=== PATIENT | female | born 1985 | race Hispanic/Latino ===

== ENCOUNTER 2016-03-20 14:35 | Emergency (ER) | payer OTHER, MEDICARE ==
[~2016-03-20] VITALS: Ht 160 cm; Wt 61.7 kg
[~2016-03-20 14:35] MED LIST: ALBUTEROL 3 ML3 ML INH; DILAUDID2 MG PO; IBU800 MG PO; OXCARBAZEPINE600 MG PO; PREDNICOT10 MG PO; PROAIR HFA0.09 MG/Ac PO; TESSALON PERLE100 MG PO; ZOFRAN ODT4 MG PO
[2016-03-20] MEDS ORDERED: FOLIC ACID1 M1 PO (14:45)
[2016-03-20] MEDS ORDERED: OXCARBAZEPINE300 M1 PO ×2 (14:46)
[2016-03-20] MEDS ORDERED: OXCARBAZEPINE150 M1 PO (14:47)
[2016-03-20] MEDS ORDERED: LORAZEPAM1 M1 PO (14:48)
[2016-03-20] MEDS ORDERED: ALBUTEROL2.5 MG/3 M INH/SOL (14:49)
[2016-03-20] MEDS ORDERED: PROAIR HFA8.5 GM INH (14:49)
[2016-03-20] MEDS ORDERED: MULTI-DAY VITA1 EACH PO (14:49)
[2016-03-20 15:17] LABS: ABSOLUTE BASOPHIL COUNT 0.1 /CUMM (0.0-0.2); ABSOLUTE EOSINOPHIL COUNT 0.3 /CUMM (0.0-0.7); ABSOLUTE GRANULOCYTE CT 5.2 /CUMM (1.4-6.5); ABSOLUTE LYMPH COUNT 2.3 /CUMM (1.2-3.4); ABSOLUTE MONOCYTE COUNT 0.4 /CUMM (0.10-0.60); BASOPHIL % 0.7 % (0.0-2.0); GRANULOCYTE % 63.2 % (42.2-75.2); HEMATOCRIT 35.2 % (37-47); MEAN CORPUSCULAR HGB 29.6 PG (27.0-31.0); MEAN CORPUSCULAR HGB CONC 33.5 G/DL (33.0-37.0); MEAN CORPUSCULAR VOLUME 88.4 FL (81.0-99.0); MEAN PLATELET VOLUME 7.9 FL (7.4-10.4); PLATELET COUNT 325 /CUMM (130-400); RBC DISTRIBUTION WIDTH 11.9 % (11.5-14.5); RED BLOOD CELL CT 3.99 /CUMM (4.20-5.40); WHITE BLOOD CELL COUNT 8.2 /CUMM (4.8-10.8)
--- NOTE | 2016-03-20 16:02 | ED AMS/SEIZURE/WEAK/DIZZY ---
History of Present Illness General Chief Complaint: Neuro Symptoms/ Deficit Stated Complaint: BIBA ?STROKE ALERT Source: patient, family, old records, EMS Exam Limitations: no limitations Vital Signs & Intake/Output Vital Signs & Intake/Output Vital Signs Date Time Temp Pulse Resp B/P Pulse O2 O2 Flow FiO2 Ox Delivery Rate 03/20 1734 86 16 119/77 99 Room Air 03/20 1450 Room Air 03/20 1439 97.0 97 107/72 Allergies Coded Allergies: latex (UNKNOWN 03/20/16) morphine (UNKNOWN 03/20/16) Reconcile Medications Albuterol Sulfate 2.5 MG/3 ML (0.083 %) VIAL.NEB 1 Vial INH/MILLY PRN ASTHMA ( Reported) Albuterol Sulfate (Proair Hfa) 90 MCG HFA.AER.AD 2 PUF INH PRN ASTHMA ( Reported) Folic Acid 1 MG TABLET 1 TAB PO DAILY SUPPLEMENT (Reported) Lorazepam 1 MG TABLET 1 TAB PO PRN ONSET OF SEIZURE (Reported) Multivitamin (Multi-Day Vitamins) 1 EACH TABLET 1 TAB PO DAILY SUPPLEMENT ( Reported) Oxcarbazepine 300 MG TABLET 2 TAB PO QAM SEIZURES (Reported) Oxcarbazepine 300 MG TABLET 3 TAB PO QPM SEIZURES (Reported) Oxcarbazepine 150 MG TABLET 1 TAB PO QAM SEIZURES (Reported) Triage Note: BIBA FROM HOME PT C/O RIGHT SIDED WEAKNESS AND HEADACHE. PER EMS. PT DROPPED HER OFF AT WORK AT 0800 TODAY AND WAS NORMAL. AT 1130 PT BEGAN HAVING HEADACHE AND RIGHT SIDED WEAKNESS. AT 1330 PT WAS TEXTING HER BUT STATED SHE HAD TO USE THE "TALK TO TEXT" BECAUSE SHE DID NOT HAVE THE FINE MOTOR FUNCTION TO TEXT. UPON ARRIVAL PT ALERT AND AGITATED, MOVING BOTH UPPER EXTREMITIES VOLUNTARILY WHILE DISTRACTED BUT RIGHT ARM IS NOT ELEVATED WHILE INSTRUCTED TO LIFT BOTH ARMS AT THE SAME TIME. Triage Nurses Notes Reviewed? yes Onset: Morning Duration: hour(s):, better, constant Timing: recent history Injury Environment: home Severity: moderate No Modifying Factors: none LMP (ages 10-50): unknown : No Patient currently breastfeeds: No HPI: 1 day prior to admission patient complained of generalized headache and felt like she was going to have a seizure so she took when necessary Ativan. Prior to admission she was talking on the phone with garbled speech Cindy thereafter mother found her laying in bed with generalized shaking and confused. There's been no fever chills nausea vomiting diarrhea abdominal pain chest pain shortness of breath dysuria rash bleeding change in medications missed medications. Past History Travel History Traveled to [place] past 21 day No Medical History Any Pertinent Medical History? see below for history Neurological: seizure Surgical History Surgical History: AVM resection Psychosocial History What is your primary language Japanese Tobacco Use: Quit >30 days ago ETOH Use: occasional use Illicit Drug Use: denies illicit drug use Family History Hx Contributory? No Review of Systems Review of Systems Constitutional: Reports: no symptoms. EENTM: Reports: no symptoms. Respiratory: Reports: no symptoms. Cardiovascular: Reports: no symptoms. GI: Reports: no symptoms. Genitourinary: Reports: no symptoms. Musculoskeletal: Reports: no symptoms. Skin: Reports: no symptoms. Neurological/Psychological: Reports: see HPI, headache, tremors, weakness. Hematologic/Endocrine: Reports: no symptoms. Immunologic/Allergic: Reports: no symptoms. All Other Systems: Reviewed and Negative Physical Exam Physical Exam General Appearance: well developed/nourished, alert, awake, anxious, mild distress Head: atraumatic, normal appearance Eyes: Bilateral: normal appearance, PERRL, EOMI. Ears, Nose, Throat: normal pharynx, normal ENT inspection Neck: normal inspection, supple, full range of motion, no midline tenderness Respiratory: normal breath sounds, chest non-tender, no respiratory distress, quiet respiration, lungs clear Cardiovascular: regular rate/rhythm, normal peripheral pulses, norml femoral pulses equa Peripheral Pulses: 4+ carotid (R), 4+ carotid (L) Gastrointestinal: normal bowel sounds, soft, non-tender, no organomegaly Back: normal inspection, normal range of motion Extremities: normal range of motion, evidence of injury, no ligament instability Neurologic/Psych: awake, alert, oriented x 3, normal gait, 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 Skin: intact, normal color Lymphatic: no anterior cervical kala Comments: Patient reports after having seizure she has transient right-sided weakness. Core Measures ACS in differential dx? No CVA/TIA Diagnosis: No Severe Sepsis Present: No Septic Shock Present: No Progress Differential Diagnosis: alcohol intoxication, CVA/stroke, drug intoxication, electrolyte imbalance, seizure disorder Plan of Care: Orders Procedure Date/time Status Add-on Test (ER Only) 03/20 1512 Active PROLACTIN 03/20 1508 Complete MAGNESIUM 03/20 1508 Complete COMPREHENSIVE METABOLIC PANEL 03/20 1448 Complete CBC WITHOUT DIFFERENTIAL 03/20 1448 Complete Laboratory Tests 03/20/16 1508: Anion Gap 9, Estimated GFR > 60, BUN/Creatinine Ratio 12.9, Glucose 83, Calcium 9.3, Magnesium 1.8, Total Bilirubin 0.4, AST 19, ALT 35, Alkaline Phosphatase 57 , Total Protein 6.9, Albumin 4.1, Globulin 2.8, Albumin/Globulin Ratio 1.5, Prolactin 30.7 H, CBC w Diff NO MAN DIFF REQ, RBC 3.99 L, MCV 88.4, MCH 29.6, RDW 11.9, MPV 7.9, Gran % 63.2, Lymphocytes % 27.6, Monocytes % 4.5, Eosinophils % 4.0, Basophils % 0.7, Absolute Granulocytes 5.2, Absolute Lymphocytes 2.3, Absolute Monocytes 0.4, Absolute Eosinophils 0.3, Absolute Basophils 0.1, PUBS MCHC 33.5 Diagnostic Imaging: Viewed by Me: CT Scan. Discussed w/RAD: CT Scan. Radiology Impression: no acute abnormality Initial ED EKG: none Departure Departure Time of Disposition: 1703 Disposition: HOME OR SELF CARE Condition: Stable Clinical Impression Primary Impression: Seizure disorder Referrals: ABDULLAHI HOWARD DO, MD, CARLOS (PCP/Family) Departure Forms: Customer Survey General Discharge Information
--- NOTE | 2016-03-20 16:41 | CT SCAN REPORT ---
EXAMINATION: CT HEAD WITHOUT AND WITH CONTRAST CLINICAL INFORMATION: History of frontal AVM with resection. Recurrent headaches and seizure. COMPARISON: CT scan of the head 12/06/2013, 09/04/2013. TECHNIQUE: Contiguous axial imaging was performed from the skull base to vertex before and after the administration of 95 mL of Optiray 320 intravenous contrast. DLP: 1201.41 mGy-cm FINDINGS: There are chronic postsurgical changes of a left frontal craniotomy and there is a focus of cystic encephalomalacia and gliosis involving the left frontal lobe. Gliotic changes extend across the genu of the corpus callosum into the subcortical white matter of the paramedian right frontal lobe. Postcontrast images demonstrate a small focus of gyriform enhancement at the posterior margin of this chronic frontal lesion. There is no acute intracranial hemorrhage or abnormal extra-axial collection. No intracranial mass effect or midline shift. Lateral and third ventricles are proportionate to the subarachnoid spaces. No hydrocephalus. The skull base is intact. There is no mastoid or middle ear effusion. Paranasal sinuses are well-aerated. Globes and orbits are symmetric. IMPRESSION: Overall there has been no substantial change when compared to the CT scan of the head from 09/04/2013. Chronic gliosis and encephalomalacia involving the frontal lobes is unchanged. There is however a small focus of gyriform cortical enhancement on the postcontrast images at the posterior margin of the left frontal lobe lesion. This may represent a manifestation of post ictal changes in the setting of recent seizure. With the clinical history of a frontal arteriovenous malformation the possibility of a residual vascular lesion cannot be definitively excluded on the basis of this examination. Ideally a dedicated brain MRI without and with contrast is recommended for better anatomic characterization of this finding.
[2016-03-20 17:34] VITALS: BP 119/77
== END 2016-03-20 17:35 ==
LOC: ERH 14:35
PROVIDERS: Emergency Medicine
DX: G40.909 Epilepsy, unspecified, not intractable, without status epilepticus (principal)
CPT/HCPCS: 96374; J0131